=== PATIENT | male | born 1990 | race Two or more races ===

== ENCOUNTER 2019-08-19 15:46 | Emergency (ER) | payer OTHER ==
[~2019-08-19] VITALS: Ht 177.8 cm; Wt 84.1 kg
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
[2019-08-19] MEDS ORDERED: MORPHINE SULFATE 4 MG/ML, 1ML ONE ×2 (16:20→17:58)
[2019-08-19] MEDS ORDERED: ONDANSETRON 2MG/ML, 2ML ONE (16:20)
[2019-08-19 16:30] LABS: BASOPHILS # (AUTO) 0.13 x10^3/uL (0-0.1); BASOPHILS % (AUTO) 1 % (0-1); EOSINOPHILS # (AUTO) 0.04 x10^3/uL (0-0.4); EOSINOPHILS % (AUTO) 0 % (1-7); LYMPHOCYTES # (AUTO) 2.11 x10^3/uL (1-3.4); LYMPHOCYTES % (AUTO) 14 % (22-44); MD NO; MEAN CORPUSCULAR HGB CONC 34.1 g/dL (33.2-36.2); MEAN CORPUSCULAR VOLUME 96.8 fL (81-97); MEAN PLATELET VOLUME 9.4 fL (7.4-10.4); MONOCYTES # (AUTO) 0.89 x10^3/uL (0.2-0.8); MONOCYTES % (AUTO) 6 % (2-9); NEUTROPHILS # (AUTO) 11.74 x10^3/uL (1.8-6.8); NEUTROPHILS % (AUTO) 79 % (42-75); PLATELET COUNT 225 x10^3/uL (130-400); RED BLOOD COUNT 4.84 x10^6/uL (4.38-5.82); RED CELL DISTRIBUTION WIDTH 12.4 % (9.4-14.8)
[2019-08-19] MEDS ORDERED: SODIUM CHLORIDE FLUSH 10ML SYR IVF ONE (16:30)
[2019-08-19] MEDS ORDERED: ONDANSETRON 2MG/ML, 2ML IVPush ONE (16:30)
--- NOTE | 2019-08-19 16:30 | NUR ---
No bruising noted to chest. Lungs clear to bases. However patient reports substernal tightness at 8/10 VSS ON LEADERSHIP RECRUITER
[2019-08-19 16:39] LABS: INTERNATIONAL NORMALIZED RATIO 0.95 (0.93-1.1); PROTHROMBIN TIME 10.1 Seconds (9.6-11.5)
[2019-08-19 16:41] LABS: ANION GAP 9 mmol/L (5-15); CALCIUM 8.8 mg/dL (8.5-10.1); CHLORIDE 110 mmol/L (98-107)
[2019-08-19] MEDS: MORPHINE SULFATE 4 MG/ML, 1ML IVPush PRN ×2 (16:43→18:01)
--- NOTE | 2019-08-19 16:46 | NUR ---
MEDICATED PER EMAR FOR CONTINUES CHEST PAIN AT 8/10 VSS ON ASSOCIATE MARKETING MANAGER
--- NOTE | 2019-08-19 17:10 | NUR ---
To ct scan
[2019-08-19] MEDS ORDERED: OMNIPAQUE 350 MG/ML, 100ML BOTTLE ONE (17:32)
[2019-08-19 18:01] VITALS: BP 101/55
--- NOTE | 2019-08-19 18:47 | NUR ---
PAIN IMPROVED T0 10 LUNGS REMAIN CLEAR- PROVIDED WITH INCENTIVE SPIROMETER REMINDED OF S/S TO WATCH OUT FOR NECCESITATING RETURN TO CARE
== END 2019-08-19 18:50 | disposition home or self-care (01) ==
LOC: ED 18:44
DX: G89.11 Acute pain due to trauma (principal); R07.89 Other chest pain; F17.200 Nicotine dependence, unspecified, uncomplicated
CPT/HCPCS: 36415; 71275; 74177; 80048; 82040; 85025; 85610; 93005; 96374; 96375; 96376; 99284; J2270; J2405; Q9967

== ENCOUNTER 2021-04-01 11:49 | Emergency (ER) | payer OTHER ==
[~2021-04-01] VITALS: Ht 177.8 cm; Wt 91.3 kg
[2021-04-01 12:07] VITALS: BP 119/66
--- NOTE | 2021-04-01 15:17 | NUR ---
Discharged by ADRIANA Torres
== END 2021-04-01 15:42 ==
LOC: ED 13:27
DX: S39.012A Strain of muscle, fascia and tendon of lower back, initial encounter (principal); S30.0XXA Contusion of lower back and pelvis, initial encounter; F17.210 Nicotine dependence, cigarettes, uncomplicated; V27.0XXA Motorcycle driver injured in collision with fixed or stationary object in nontraffic accident, initial encounter; Y93.89 Activity, other specified; Y92.89 Other specified places as the place of occurrence of the external cause; Y99.8 Other external cause status
CPT/HCPCS: 72110; 72220; 82962; 99284

== ENCOUNTER 2021-04-11 08:41 | Emergency (ER) | payer OTHER ==
[~2021-04-11] VITALS: Ht 175.3 cm; Wt 90.2 kg
[2021-04-11 08:43] VITALS: BP 112/53
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
--- NOTE | 2021-04-11 09:47 | NUR ---
Patient given discharge instructions and they have confirmed that they understand the instructions. Patient ambulatory with steady gait. NAD, all questions answered appropriately, denies additional needs at this time. No personal belongings left in room after discharge.
== END 2021-04-11 09:48 | disposition home or self-care (01) ==
LOC: ED 08:50
DX: S39.012A Strain of muscle, fascia and tendon of lower back, initial encounter (principal); V19.9XXA Pedal cyclist (driver) (passenger) injured in unspecified traffic accident, initial encounter; Y93.89 Activity, other specified; Y92.89 Other specified places as the place of occurrence of the external cause; Y99.8 Other external cause status
CPT/HCPCS: 99283